=== PATIENT | male | born 1970 | race Caucasian/White ===

== ENCOUNTER → 2017-12-06 10:07 | Outpatient (CLI) | payer BC, SELFPAY ==
[2017-12-06 12:26] LABS: T4 Total, Thyroxin 10.6 ug/dL (4.5-12.1); Thyroid Stim Hormone (TSH) 2.05 uIU/mL (0.358-3.74)
== END ==
PROVIDERS: Family Provider Family Medicine; PCP Family Medicine; Visit Provider Internal Medicine Cardiovascular Disease
DX: R06.00 Dyspnea, unspecified (principal); R07.9 Chest pain, unspecified; E66.9 Obesity, unspecified; E78.5 Hyperlipidemia, unspecified
CPT/HCPCS: 36415; 84436; 84443

== ENCOUNTER → 2017-12-21 10:35 | Outpatient (CLI) | payer BC, SELFPAY ==
--- NOTE | 2017-12-21 10:46 | ECHOD_ITS ---
Reason For Study: Chest Pain Procedure This was a 2D Doppler, Color Flow transthoracic echocardiogram. Exam performed in department. Left Ventricle Normal size and thickness. Mid cavitary false tendon noted. The estimated ejection fraction is 65 %. Normal diastology for age. No regional wall motion abnormalities noted. Right Ventricle Normal size and thickness. Normal systolic function. Atria Normal left atrium. Normal right atrium. Normal atrial septum. Mitral Valve The mitral valve is structurally normal. No prolapse or stenosis seen. Trivial mitral valve insufficiency. Tricuspid Valve Normal tricuspid valve. Unable to estimate RV systolic pressure due to inadequate jet, pulmonary artery pressure probably normal. Aortic Valve Normal aortic valve. Trisinus/trileaflet aortic valve. Pulmonic Valve Normal pulmonic valve. Great Vessels Normal aortic root. Normal arch. Normal inferior vena cava. Inferior vena cava collapse with sniff. Pericardium/Pleural No pericardial effusion. MMode/2D Measurements & Calculations LVIDd: 5.2 cm IVSd: 1.1 cm Ao root diam: 3.0 cm LVIDs: 3.5 cm LVPWd: 0.97 cm RVDd: 3.2 cm FS: 33.4 % LAV(MOD-bp): 38.3 ml LA A4 area: 16.1 cm2 RA A4 area: 13.3 cm2 LAV(MOD-bp) Indexed: 15.4 ml/m2 LAV(MOD-sp2): 34.4 ml LAV(MOD-sp4): 38.2 ml Doppler Measurements & Calculations MV E max j luis: 78.2 cm/sec Lat Peak E' J Luis: 15.3 cm/sec Med Peak E' J Luis: 8.5 cm/sec MV A max j luis: 61.2 cm/sec E/E' lat: 5.1 E/E' med: 9.2 MV E/A: 1.3 Ao V2 max: 107.5 cm/sec LV V1 max: 89.0 cm/sec PA V2 max: 105.5 cm/sec Ao max P.6 mmHg LV V1 max P.2 mmHg Ao V2 mean: 76.8 cm/sec Ao mean P.6 mmHg Ao V2 VTI: 26.0 cm Interpretation Summary The estimated ejection fraction is 65 %. Normal diastology for age. Trivial mitral valve insufficiency. Unable to estimate RV systolic pressure due to inadequate jet, pulmonary artery pressure probably normal. The study was technically difficult. There is no comparison study available. Ordering Physician: Federico Melendrez Referring Physician: Rene Butt Performed By: Lona Guerra RDCS, RVT
== END ==
PROVIDERS: Family Provider Family Medicine; PCP Family Medicine; Visit Provider Internal Medicine Cardiovascular Disease
DX: R07.9 Chest pain, unspecified (principal); R06.00 Dyspnea, unspecified
CPT/HCPCS: 93306

== ENCOUNTER → 2018-01-02 10:09 | Outpatient (CLI) | payer BC, SELFPAY ==
--- NOTE | 2018-01-02 10:09 | DT_ITS ---
This patient was seen during an EMR downtime January 02, 2018 - January 09, 2018. This patient may have a combination of paper and electronic documentation or all paper documentation. All documentation is viewable within the e-chart portion of [employer] for each patient visit.
--- NOTE | 2018-01-02 13:18 | STE_ITS ---
Reason For Study: TERAN Stress Results Protocol: Osvaldo Protocol Maximum Predicted HR: 172 bpm Target HR: 146 bpm% Max imum Predicted HR: 97 % DurationHeart Rate Stage (mm:ss) (bpm) BP BASELINE 68 134/70 STAGE 1 3:00 10 9 144/74 STAGE 2 3:00 13 1 152/80 STAGE 3 3:00 16 6 172/80 RECOVERY 100 140/7 8 Stress Duration: 9:00 mm:ss Maximum Stress HR: 166 bpm Baseline Echocardiogram Findings The estimated ejection fraction is 65 %. Stress Echo Wall motion Data Resting WMIntermediate WMStress WM Resting Wall Motion Wall Motion Stress No regional wall motion No regional wall motion abnormalities noted. abnormalities noted. EKG Data Normal intervals are noted. The patient exercised according to the regular Osvaldo protocol for a total duration of 9:01. The maximum heart rate attained was 166 beats per minute. This was 96% of maximum predicted heart rate. The patient exercised into stage 4 of the Osvaldo protocol. During stress, there were no ST or T wave changes noted to suggest ischemia. No clinical angina was noted. Interpretation Summary Normal adequate treadmill stress echo. Negative for ischemia by ECG and ECHO. Normal Blood pressure response to exercise. Average exercise capacity for age. No angina, Rare PVC. Final LVEF-75% The estimated ejection fraction is 65 %. Normal, adequate, treadmill echocardiogram. Negative for ischemia by EKG and echocardiographic anterior. No anginal symptoms noted. Rare PVCs noted. Normal blood pressure response to exercise. Test terminated due to dyspnea and THR achieved. Final LVEF is 75%. Average exercise capacity for age. Ordering Physician: Federico Melendrez MD Referring Physician: Federico Melendrez MD Performed By: Mandi Christensen RDCS
== END ==
PROVIDERS: Family Provider Family Medicine; PCP Family Medicine; Visit Provider Internal Medicine Cardiovascular Disease
DX: R07.9 Chest pain, unspecified (principal); R06.00 Dyspnea, unspecified; R53.83 Other fatigue; E78.5 Hyperlipidemia, unspecified; E66.9 Obesity, unspecified
CPT/HCPCS: 93017; 93350

== ENCOUNTER → 2019-12-27 14:19 | Outpatient (CLI) | payer BC, SELFPAY ==
--- NOTE | 2019-12-27 14:24 | US_ITS ---
STUDY: THYROID ULTRASOUND REASON FOR EXAM: Male, 49 years old. NECK DISCOMFORT TO THE RIGHT OF THE THYROID TECHNIQUE: Ultrasound evaluation of the thyroid was performed with real-time and static palacios-scale imaging. COMPARISON: None. FINDINGS: RIGHT LOBE: The right lobe of the thyroid gland measures 4.8 x 1.6 x 1.2 cm. There is a homogeneous echotexture. There are no demonstrated solid, cystic or complex lesions. LEFT LOBE: The left lobe of the thyroid gland measures 4.6 x 1.6 x 1.0 cm. There is a homogeneous echotexture. Hypoechoic solid nodule measures 11 x 8 x 10 mm at the lower pole. ISTHMUS: The isthmus measures 3 millimeters. The regional lymph nodes are normal. US/Thyroid IMPRESSION: 11 mm solid thyroid nodule is moderately suspicious (TR4: Moderately suspicious (4-6 pts) FNA biopsy if nodule at least 1.5cm; follow if at least 1 cm.) Continued follow-up is recommended.. Electronically Signed: Payam Olvera, at 15:30 EDT Tel , Service support ,
== END ==
PROVIDERS: PCP Family Medicine; Referring Provider Family Medicine; Visit Provider Family Medicine
DX: M54.2 Cervicalgia (principal)
CPT/HCPCS: 76536

== ENCOUNTER → 2020-01-08 14:08 | Outpatient (CLI) | payer BC, SELFPAY ==
--- NOTE | 2020-01-08 | ASPIG_PTH ---
PATIENT: JOURDAN VALLE LOC: [facility]#:[id number] AGE/SX: 54/M ROOM: RE01/08/[address]: Dr. Rene Butt MD : 1970 BED: DIS: SPEC #: [id number] RECD: 01/08/20 15:00 STATUS: LIO REStella #: [id number] MAXI: 01/08/20 00:[address]: Rene Butt DEPT: CYTOLOGY RECD BY: Michael Jorge Tissues: Thyroid gland, NOS Procedures: FNA Specimen Adequacy Special Stain Group II Surgery Specimen Level IV Cytology Other HEADER OPERATION: Left thyroid nodule, ultrasound-guided fine needle aspiration PRE-OP DIAGNOSIS: Left thyroid nodule 1 cm solid TISSUE SUBMITTED: Left thyroid nodule DIAGNOSIS CYTOLOGY Left thyroid nodule, ultrasound-guided FNA (smears, cytospin and cell block): A few benign follicular cells noted. See comment. MIRI:adelia 01/09/20 COMMENT The specimen is evaluated at the time of FNA by Dr. Silver. Immediate Evaluation: Pass 1 - Mostly bloody. Pass 2 - Blood only. The specimen is limited in evaluation due to lack of adequate number of follicular cells. Correlation with clinical, radiologic findings and appropriate follow up are necessary. CYTOLOGY STUDY Slides are reviewed. CYTOLOGY GROSS Pass 1 - Received is 0.2 ml of bloody fluid labeled with the patient's name, and designated left thyroid nodule. Four imprints and three paps are made from the submitted fluid and the rest is added to CytoLyt for cell block preparation. Submitted for cytology study. Pass 2 - Received is 0.1 ml of bloody fluid labeled with the patient's name, and designated left thyroid nodule. Two imprints are made from the submitted fluid and the rest is added to CytoLyt for cell block preparation. Submitted for cytology study. / SJ:rg 01/08/20 TC:5 CPT: 55109, 28076, 22384, 08503, 98530
--- NOTE | 2020-01-08 14:13 | US_ITS ---
PROCEDURE: ULTRASOUND GUIDED LEFT THYROID FNA/BIOPSY. DATE: January 08, 2020. INDICATION: Male, 49 years old. Left lower lobe thyroid nodule. PHYSICIAN: Andrews Raya M.D. MEDICATIONS: 2% lidocaine administered subcutaneously for local anesthesia. ACCESS SITE: Left - anterior approach. NEEDLE: 25-gauge FNA needle. SPECIMEN: Multiple FNA specimen collected and given to pathology. EBL: None. COMPLICATIONS: None immediate. PROCEDURE: The risks, benefits, and alternatives to the procedure were explained to the patient. The specific risk of hemorrhage requiring further treatment or intervention was detailed and accepted. Written informed consent was obtained. The patient was brought into the ultrasound room and placed in the supine position on the stretcher. An appropriate entry site was identified. The overlying skin was prepped and draped in the usual sterile fashion. 2% lidocaine was administered subcutaneously for local anesthesia. Under ultrasound guidance, a 25-gauge FNA needle was advanced into the lesion. Aspiration was performed and the needle was withdrawn. A total of 4 passes were performed with specimen collected and given to the pathologist who was present during the procedure. Hemostasis was achieved with manual compression. Repeat ultrasound images of the biopsy area was performed which demonstrated no gross bleeding or hematoma. An antibiotic ointment dressing was placed and the patient was given an icepack. The patient tolerated the procedure well without immediate complications. The patient was discharged in stable condition. US/FNA 1st Biopsy w/ US IMPRESSION: Successful ultrasound-guided left thyroid nodule FNA/biopsy, as described above. Electronically Signed: Andrews Raya, at 15:17 EDT , Service support ,
== END ==
LOC: US 14:10
PROVIDERS: PCP Family Medicine; Referring Provider Family Medicine; Visit Provider Family Medicine
DX: E04.1 Nontoxic single thyroid nodule (principal)
CPT/HCPCS: 10005; 88161; 88172; 88305; 88313